=== PATIENT | female | born 1970 | race Hispanic/Latino ===

== ENCOUNTER 2021-07-18 18:14 | Inpatient (IN) | payer MEDICARE, OTHER ==
[~2021-07-18] VITALS: Ht 157.5 cm; Wt 72.6 kg
[2021-07-18 19:03] LABS: BASOPHILS % 0.3 % (0.0-1.0); EOSINOPHILS # (AUTO) 0.1 (0.0-0.4); EOSINOPHILS % 0.8 % (0.0-6.0); HEMATOCRIT 51.9 % (34.2-44.1); HEMOGLOBIN 16.1 g/dL (12.0-16.0); LYMPHOCYTES % 38.7 % (18.0-39.1); MEAN CORPUSCULAR VOLUME 103.2 fL (81-99); MONOCYTES # (AUTO) 0.5 (0.2-0.8); MONOCYTES % 4.9 % (4.4-11.3); NEUTROPHILS # (AUTO) 5.7 (2.1-6.9); NEUTROPHILS % 54.9 % (38.7-80.0); PLATELET COUNT 102 x10e3/uL (140-360); RED BLOOD COUNT 5.03 x10e6/uL (3.6-5.1); RED CELL DISTRIBUTION WIDTH 14.5 % (11.7-14.4)
[2021-07-18 20:16] LABS: ALANINE AMINOTRANSFERASE 82 IU/L (0-55); ALBUMIN 4.3 g/dL (3.5-5.0); ALKALINE PHOSPHATASE 132 IU/L (40-150); ANION GAP 17.5 mmol/L (8-16); BLOOD UREA NITROGEN 14 mg/dL (7-26); BUN/CREATININE RATIO 29 (6-25); CALCIUM 9.7 mg/dL (8.4-10.2); CARBON DIOXIDE 14 mmol/L (22-29); CHLORIDE 111 mmol/L (98-107); CREATINE KINASE 108 IU/L (29-168); CREATININE, SERUM 0.49 mg/dL (0.57-1.11); EST GLOMERULAR FILTRATION RATE 133 ML/MIN (60-); GLUCOSE 80 mg/dL (74-118); POTASSIUM 4.5 mmol/L (3.5-5.1); SODIUM 138 mmol/L (136-145)
[2021-07-19] VITALS (21 sets, daily range): BP systolic 87–130; BP diastolic 36–100
[2021-07-19] MEDS ORDERED: SODIUM CHLORIDE FLUSH 10 ML SYR INJ PRN (01:30)
[2021-07-19] MEDS ORDERED: ASPIRIN 81 MG CHEW TAB PO ONE (01:30)
[2021-07-19] MEDS: FAMOTIDINE 20 MG/2 ML VIAL IV SCH ×3 (04:32→21:06)
[2021-07-19 04:34] LABS: CREATINE KINASE MB 1.4 ng/mL (0-5.0)
[2021-07-19] MEDS: MORPHINE SULFATE INJ 2 MG/ML SYR IV PRN ×5 (07:49→23:12)
[2021-07-19] MEDS: ASPIRIN 81 MG ENTERIC COATED PO SCH (09:33)
[2021-07-19 11:40] LABS: CREATINE KINASE MB 1.1 ng/mL (0-5.0)
[2021-07-19] MEDS ORDERED: HYDROCODONE/APAP 5MG-325MG TAB PO PRN (14:00)
[2021-07-19 18:04] LABS: CREATINE KINASE MB 0.8 ng/mL (0-5.0)
[2021-07-19] MEDS: ALBUTEROL/IPRATROPIUM 3 ML NEB NEB PRN (21:40)
[2021-07-20] VITALS (25 sets, daily range): BP systolic 90–129; BP diastolic 41–76
[2021-07-20] MEDS: MORPHINE SULFATE INJ 2 MG/ML SYR IV PRN ×3 (00:02→20:10)
[2021-07-20] MEDS: ALBUTEROL/IPRATROPIUM 3 ML NEB NEB PRN ×5 (02:45→23:30)
[2021-07-20 06:21] LABS: CHOL/HDL RATIO 2.3 (3.0-3.6)
[2021-07-20 06:23] LABS: ALBUMIN 3.6 g/dL (3.5-5.0); ANION GAP 13.4 mmol/L (8-16); CALCIUM 8.9 mg/dL (8.4-10.2); CREATININE, SERUM 0.39 mg/dL (0.57-1.11); MAGNESIUM 1.8 MG/DL (1.3-2.1); POTASSIUM 3.4 mmol/L (3.5-5.1)
[2021-07-20 06:46] LABS: BASOPHILS % 0.2 % (0.0-1.0); EOSINOPHILS % 0.2 % (0.0-6.0); HEMATOCRIT 40.8 % (34.2-44.1); HEMOGLOBIN 13.6 g/dL (12.0-16.0); LYMPHOCYTES # (AUTO) 2.3 (1.0-3.2); LYMPHOCYTES % 18.6 % (18.0-39.1); MEAN CORPUSCULAR HEMOGLOBIN 31.8 pg (28-32); MEAN CORPUSCULAR HGB CONC 33.3 g/dL (31-35); MEAN CORPUSCULAR VOLUME 95.3 fL (81-99); MONOCYTES # (AUTO) 0.9 (0.2-0.8); MONOCYTES % 7.4 % (4.4-11.3); NEUTROPHILS # (AUTO) 9.2 (2.1-6.9); NEUTROPHILS % 73.1 % (38.7-80.0); PLATELET COUNT 207 x10e3/uL (140-360); RED BLOOD COUNT 4.28 x10e6/uL (3.6-5.1); RED CELL DISTRIBUTION WIDTH 14.4 % (11.7-14.4)
[2021-07-20] MEDS: ASPIRIN 81 MG ENTERIC COATED PO SCH (09:27)
[2021-07-20] MEDS: FAMOTIDINE 20 MG/2 ML VIAL IV SCH ×2 (09:27→20:09)
[2021-07-21] VITALS (11 sets, daily range): BP systolic 86–122; BP diastolic 54–70
[2021-07-21] MEDS: ALBUTEROL/IPRATROPIUM 3 ML NEB NEB PRN ×2 (02:45→07:32)
[2021-07-21] MEDS: MORPHINE SULFATE INJ 2 MG/ML SYR IV PRN (05:08)
[2021-07-21] MEDS: ASPIRIN 81 MG ENTERIC COATED PO SCH (08:38)
[2021-07-21] MEDS: FAMOTIDINE 20 MG/2 ML VIAL IV SCH (08:38)
== END 2021-07-21 09:51 | disposition home or self-care (01) | DRG 313 ==
LOC: ER 18:21 → ERHOLD 07-19 01:20 → ICU 07-19 05:00
PROVIDERS: ADMIT Internal Medicine; ATTEND Internal Medicine
PROC: 5A1945Z Respiratory Ventilation, 24-96 Consecutive Hours (ICD-10-PCS; principal; 2021-07-19)
PROC: 02HV33Z Insertion of Infusion Device into Superior Vena Cava, Percutaneous Approach (ICD-10-PCS; 2021-07-19)
DX: R07.9 Chest pain, unspecified (principal); R53.2 Functional quadriplegia; J96.10 Chronic respiratory failure, unspecified whether with hypoxia or hypercapnia; J96.11 Chronic respiratory failure with hypoxia; J95.09 Other tracheostomy complication; Z99.11 Dependence on respirator [ventilator] status; G71.00 Muscular dystrophy, unspecified; Z99.81 Dependence on supplemental oxygen; Z20.822 Contact with and (suspected) exposure to COVID-19; K21.9 Gastro-esophageal reflux disease without esophagitis; D69.6 Thrombocytopenia, unspecified
CPT/HCPCS: 36415; 36569; 71045; 76705; 80053; 80061; 82550; 82553; 83735; 84484; 85025; 93005; 93306; 94002; 94003; 94640; 99251; 99285; J2270; U0002